=== PATIENT | male | born 2000 | race Caucasian/White ===

== ENCOUNTER 2023-03-10 12:30 | Emergency (ER) | payer SELFPAY ==
[2023-03-10 13:01] VITALS: BMI 39.2
[2023-03-10 13:04] VITALS: BP 143/90; PULSE 86; RESP 18; TEMP 36.9; O2SAT 96
--- NOTE | 2023-03-10 14:10 | PC.NURSE ---
PATIENT FAMILY IN PATIENT ROOM REQUESTING A SHOT OF ANTIBIOTICS FOR PATIENT AND A SCRIPT FOR ANTIBIOTICS. PATIENT FAMILY EDUCATED THAT THE PATIENT NEEDS TO BE SEEN BY PROVIDER TO DETERMINE PLAN OF CARE. PATIENT FAMILY STATES IF WE'RE NOT GOING TO DO A SHOT OF ANTIBIOTICS THEN WE ARE BASICALLY WASTING OUR TIME. WE HAVE ALREADY BEEN HERE FOR 2 HOURS. PATIENT FAMILY WAS EDUCATED ON ROOMING BY ACUITY AND WAIT TIME AND WAS THEN APOLOGIZED TO FOR THE WAIT THEY EXPERIENCED.
--- NOTE | 2023-03-10 14:26 | ED_ITS ---
HPI - Skin/Abscess/Foreign Bdy General: Chief complaint: Skin/Abscess/Foreign Body Stated complaint: Swollen face Time Seen by Provider: 03/10/23 14:04 History of Present Illness: Patient is a 23-year-old male that presents to the emergency department with complaints of dental pain, dental abscess. Onset of symptoms 1 week ago. Patient has been managing pain at home with [id number] remedies. Patient has not seen a dentist in greater than 10 years. Patient's mother is with him and does much of the speaking for him. She is requesting antibiotics for treatment prior to take him to the dental office History includes pseudotumor cerebri and congenital Associated symptoms: Deny chills or fever(s) Review of Systems General: Reports: 10 or more systems reviewed and unremarkable except in HPI and below Const: Denies: fever(s), chills, change in appetite, change in weight, fatigue or malaise Eyes: Denies: change in vision, eye discomfort, eye discharge or eye redness ENMT: Denies: throat pain, enlarged tonsils, odynophagia, hoarseness, ear or mastoid pain, ear discharge, change in hearing, tinnitus, nasal discharge, nasal congestion, post nasal drip or sinus pain Musc: Denies: neck pain, back pain, extremity pain, joint pain, joint swelling, joint redness, joint warmth or muscle weakness Skin/Breast: Denies: rash, pruritus, erythema, photosensitivity or new lesions Neuro: Denies: headache(s), numbness in extremities, weakness in extremities, sensory changes, lack of coordination, difficulty walking, frequent falls, dizziness, confusion, Slurred speech present, difficulty communicating thoughts, seizure-like activity or involuntary movements Endo: Denies: polyuria, polydipsia or tired all the time Rc/Lymph: Denies: easy bruising or easy bleeding Physical Exam Const: COMMON NORMALS: no acute distress, patient oriented x3 and alert GENERAL APPEARANCE: cooperative ORIENTATION/CONSCIOUSNESS: Yes awake, Yes oriented to person, Yes oriented to place and Yes oriented to time HENMT: COMMON NORMALS: normocephalic and atraumatic HEAD & SCALP: normocephalic and atraumatic FACE & SINUS: normal facial exam MOUTH: Norm al oral and palatal mucosa present TEETH & GINGIVA: Yes abnormal tooth and associated gingiva, Yes caries, Yes poor dentition and Yes teeth discoloration TEETH & GINGIVA IMAGES: 1. Dental fracture 2. Dental fracture THROAT: posterior oropharynx normal Eye: COMMON NORMALS: Equal, round and reactive pupils present, EOMs intact bilaterally, conjunctivae normal and no scleral icterus GENERAL EYE: appearance normal, both eyes and all related structures ALIGNMENT: Yes alignment normal PERIORBITAL: periorbital findings normal CONJUNCTIVA: Yes conjunctivae normal PUPIL: Yes Equal, round and reactive pupils present Neck/C-Spine: COMMON NORMALS: full ROM GENERAL: Yes normal visual inspection Lymph: LYMPHATIC: no lymphadenopathy noted Chest: COMMONS NORMALS: normal inspection of the chest Breast/axilla inspection: Yes no chest deformity, asymmetry, normal contours, no nodules, masses, tenderness Resp: COMMON NORMALS: normal respiratory effort, No retractions, No use of accessory muscles and clear to auscultation bilaterally EFFORT & INSPECTION: Yes able to speak in complete sentences and Yes symmetric chest movement AUSCULTATION: clear to auscultation bilaterally Extremity: COMMON NORMALS: normal to inspection GENERAL: Yes normal exam except as noted Neuro: COMMON NORMALS: patient oriented x3 SENSORIUM/ORIENTATION: Yes alert, Yes oriented to person, Yes oriented to place and Yes oriented to time CRANIAL NERVES: Yes CN normal except as noted Psych: COMMON NORMALS: mental status grossly normal, Normal thought process present, cooperative, activity/motor behavior normal, denies homicidal ideation and denies suicidal ideation THOUGHT PROCESS: Normal thought process present Skin: COMMON NORMALS: no rashes or lesions noted, no wounds and turgor normal GENERAL SKIN EXAM: no rashes or lesions noted and turgor normal Course Vital Signs: Vital signs: Vital Signs Temperature 98.4 F 03/10/23 13:04 Pulse Rate 86 03/10/23 13:04 Respiratory Rate 18 03/10/23 13:04 Blood Pressure 143/90 03/10/23 13:04 Pulse Oximetry 96 03/10/23 13:04 Oxygen Delivery Me thod Room Air 03/10/23 13:04 MDM - Skin/Abscess/Foreign Bdy Medicial Decision Making Patient was evaluated in the emergency department for dental pain. Patient has not been to a dentist in greater than 10 years. Patient does have an apparent abscess although there is no drainable abscess. Swelling is noted. Patient was treated here in the emergency department with Augmentin and Toradol IM. He will discharge home with these medications as well as Peridex. Patient strongly been encouraged to follow-up with a dentist. Discharge Plan Discharge Patient Disposition: Home Clinical Impression: Dental abscess Condition: Stable Prescriptions: New amoxicillin-pot clavulanate 875-125 mg tablet 1 tab PO BID 14 Days Qty: 28 0RF ketorolac 10 mg tablet 10 mg PO TID PRN (Reason: pain) 5 Days Qty: 15 0RF chlorhexidine gluconate [Peridex] 0.12 % mouthwash 15 ml buccal BID Qty: 120 0RF Discharge Orders: Discharge ED (Routine); Ordered 03/10/23 Ordered By: Lisbet Pearl Discharge Diet: Advance as tolerated Discharge Activity: Resume usual activity Patient Instructions: How to Stop Smoking (ED), Dental Abscess (ED), Tobacco Stomatitis (DC), Pain Management Coding Level of Care Code ED Senior Litigation Paralegal for Bonnie Herrmann
[2023-03-10] MEDS: amoxicillin-clav 875-125 mg Tablet 1 TAB PO (14:33)
--- NOTE | 2023-03-10 14:41 | PC.NURSE ---
PATIENT MOTHER QUESTIONED WHY THE PROVIDER DID NOT ORDER AN AMOXICILLIN SHOT. PT MOTHER WAS EDUCATED ON THE ROUTE THIS MEDICATION IS TYPICALLY ORDERED BY PROVIDERS AND THAT THE PO FORM RATHER THAN THE IM ROUTE WAS WHAT THIS PROVIDER WANTED. PATIENT MOTHER STATES THIS IS STUPID. HE NEEDS A SHOT NOT A PILL. PATIENT DID NOT COMPLAIN ABOUT TAKING A PILL FOR THE ANTIBIOTICS.
== END 2023-03-10 14:44 | disposition home or self-care (01) ==
PROVIDERS: Emergency Provider Nurse Practitioner
DX: K04.7 Periapical abscess without sinus (principal)
CPT/HCPCS: 99283